=== PATIENT | female | born 1990 | race African-American/Black ===

== ENCOUNTER 2021-03-26 13:15 | Outpatient (REF) | payer OTHER, SELFPAY ==
[2021-03-27 03:55] LABS: CT PCR NOT DETECTED (Not Detect.); NG PCR NOT DETECTED (Not Detect.)
== END 2021-03-26 13:16 | disposition home or self-care (01) ==
LOC: HO.LAB 13:15
PROVIDERS: Visit Provider Advanced Practice Midwife
DX: Z30.011 Encounter for initial prescription of contraceptive pills (principal); N91.2 Amenorrhea, unspecified
CPT/HCPCS: 81025; 87491; 87591

== ENCOUNTER 2023-10-15 10:02 | Outpatient (AMB) | payer OTHER, SELFPAY ==
[2023-10-15 11:08] VITALS: BP 100/70; PULSE 83; O2SAT 96; BMI 41.8
--- NOTE | 2023-10-15 11:08 | A.OFFPC_ITS ---
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[facility]) Intake Note: Pt is here today as a New Patient for a PE Is last menstrual period known: Yes Last menstrual period: 10/09/23 Allergies No Known Allergies Allergy (Unverified 10/15/23 11:24) Medication List - Last Reconciled 10/15/23 by RACHEL Em risperidone 2 mg PO BEDTIME sertraline 50 mg PO DAILY Tobacco use date assessed: 10/15/23 Dental Screening Dental Screen Date: 10/15/23 Did you have a dental visit in the last 12 months?: Yes Did you have a dental problem in the last 6 months where you did not have access to dental care?: No Was dental information given to patient?: Patient has dentist HPI HPI Comments History of Present Illness Details Patient is a 32-year-old female in today for physical exam. Patient is due for Pap smear, will refer to OBGYN. The patient is up-to-date with Tdap, last immunization was in 2019. Patient has not seen a provider in several years. Will draw fasting labs. Has a past medical history significant for: Anxiety depression-currently seeing Psychiatry. Control with medications. Patient is moving to [place] an early November. She reports that when she visits she gets nausea for the 1st week, usually due to acclimating to traveling and the change in cuisine. [facility] Medical History (Updated 10/15/23 @ 11:48 by RACHEL Em) Nausea History of chlamydia History of MRSA infection Depression Asthma Social History Housing: House Alcohol intake: former Patient Tobacco Use Status: Current everyday Tobacco user Tobacco use type: Cigarette Cigarettes Per Day: 7 Years Smoked: 9 Packs per year/per ci.15 e-Cigarette/Vaping Use: Never Used service: No Current occupational status: unemployed Gender identity: Female Cognitive needs: No Hearing needs: No Vision needs: No Female Reproductive History Menstrual Age of Menarche: 11 Date of last menstrual period: 10/09/23 Questionnaire PHQ-9 Over the last 2 weeks, how often have you been bothered by any of the following problems? 1. Little interest or pleasure in doing things: not at all 2. Feeling down, depressed, or hopeless: not at all 3. Trouble falling or staying asleep, or sleeping too much: not at all 4. Feeling tired or having little energy: not at all 5. Poor appetite or overeating: not at all 6. Feeling bad about yourself - or that you are a failure or have let yourself or your family down: not at all 7. Trouble concentrating on things, such as reading the newspaper or watching television: not at all 8. Moving or speaking so slowly that other people could have noticed. Or the opposite - being so fidgety or restless that you have been moving around a lot more than usual: not at all 9. Thoughts that you would be better off or of hurting yourself in some way: not at all Total score: 0 Depression Screening Interpretation: Negative Depression Screening Done: Yes 93794 - PHQ-9 Billing: Yes Source: Developed by Drs. Alex Lin, Maida Tanner, Augie Ozuna and colleagues, with an educational elma from [employer]. Thrive Questionnaire Date Thrive assessed: 10/15/23 I am a: Patient What is your living situation today?: I have a steady place to live Within the past 12 months, did the food you bought not last and you didn't have the money to get more?: Never true Within the past 12 months, did you worry whether your food would run out before you got money to buy more?: Never true Do you have trouble paying for medicines?: No Do you have trouble getting transportation to medical appointments?: No Do you have trouble paying your heating and electricity bill?: No Do you have trouble taking care of your child, family member or friend?: No Are you currently unemployed and looking for a job?: No Are you interested in more education?: No THRIVE Score: 0 AUDIT C Alcohol Use Questionnaire (AUDIT-C) 1. How often do you have a drink containing alcohol?: Never Total Score: 0 SANTANA-7 AMB Questionnaire SANTANA-7 Date SANTANA - 7 assessed: 10/15/23 Feeling nervous, anxious, or on edge: 0 = Not at all Not being able to stop or control worryin = Not at all Worrying too much about different things: 0 = Not at all Trouble relaxin = Not at all Being so restless that it is hard to sit still: 0 = Not at all Becoming easily annoyed or irritable: 0 = Not at all Feeling afraid as if something awful might happen: 0 = Not at all Total SANTANA-7 score (0-4 normal; 5-9 mild; 10-14 moderate; 15-21 severe): 0 Source: Developed by Drs. Alex Lin, Maida Tanner, Augie Ozuna and colleagues, with an educational elma from [employer]. SANTANA-7 Assessment Billing SANTANA-7 Assessment Tool: SANTANA-7 Assessment 63578 Review of Systems Const All systems reviewed & are unremarkable except as noted in HPI and below Physical exam (Primary Care) Vital Signs: Last Vital Signs Pulse 83 10/15/23 11:08 BP 100/70 10/15/23 11:08 Pulse Ox 96 10/15/23 11:08 Oxygen Delivery Method Room Air 10/15/23 11:08 Care Plan Goal for BP management: Blood pressure controlled. BMI result Body Mass Index 41.8 Tobacco/Smoking Status: Tobacco use Status Tobacco use date assessed 10/15/23 10/15/23 11:12 Patient Tobacco Use Status Current everyday Tobacco 10/15/23 11:18 Tobacco use type Cigarette 10/15/23 11:12 e-Cigarette/Vaping Use Never Used 10/15/23 11:18 Are you ready to quit: No PHQ-9: PHQ-9 Score PHQ-9: Total score 0 10/15/23 11:12 Depression Screening Interpretation: Negative Thrive Assessment: Date of Thrive Assessment Date Thrive assessed 10/15/23 10/15/23 11:12 Const Other: Appearance: Alert.? Oriented X3.? No acute distress.? Head: Normocephalic, atraumatic. Eyes: Sclera white. PERRLA ENT: Pharynx normal.?TM intact and pearly dixon. Neck: Normal inspection.? Neck supple.?Full ROM. No carotid upstroke. CVS: Normal heart rate and rhythm.? Pulses normal.? Respiratory: No respiratory distress.? Breath sounds normal.? Abdomen: Soft and nontender.? Skin: Skin warm and dry.? Normal skin color.? Normal skin turgor.? Extremities: No lower extremity edema. 5/5 strength to bilateral upper and lower extremities Back: No midline tenderness, no C-spine tenderness, full range of motion, no CVA tenderness bilaterally Neuro: Oriented X 3.? No motor deficit.? No sensory deficit. CN 2-12 intact Assessment and Plan Assessment & Plan (1) Encounter for physical examination: Comment: Will draw fasting labs. Code(s): Z00.00 - Encounter for general adult medical examination without abnormal findings (2) Depression: Comment: Establish care with psychiatry. Patient depression controlled with medications risperidone 2 mg p.o. daily and sertraline 50 mg p.o. daily. Code(s): F32.A - Depression, unspecified Qualifiers: Depression Type: unspecified Qualified Code(s): F32.A - Depression, unspecified Plan: Take your medications as prescribed. If you were prescribed antibiotics today, it is important that you take your medication to their entirety, do not skip any doses, do not finish them early. Plan Will follow up with labs. Orders: Orders Complete Blood Count Auto Diff Today Z13.0 - Encounter for screening for diseases of the blood and blood-forming organs and certain disorders involving the immune mechanism Comprehensive Met. Panel Today Z91.89 - Other specified personal risk factors, not elsewhere classified Lipid Panel Today Z13.220 - Encounter for screening for lipoid disorders Vitamin D 25-OH (D2 and D3) Today Z91.89 - Other specified personal risk factors, not elsewhere classified Vitamin B6 Today Z13.21 - Encounter for screening for nutritional disorder Vitamin B12 Today Z13.21 - Encounter for screening for nutritional disorder Ur Preg Test Today Z30.011 - Encounter for initial prescription of contraceptive pills UA CC w/rflx Micro + Cult Today Z13.89 - Encounter for screening for other disorder TSH reflex Free T4 Today Z13.29 - Encounter for screening for other suspected endocrine disorder Referrals [facility] Referral Z12.4 - Encounter for screening for malignant neoplasm of cervix Coding Level of Care Code New Pt Prev Care [id number] Diagnoses Encounter for physical examination Z00.00 Depression, unspecified depression type F32.A Depression Type: unspecified Additional Codes SANTANA-7 Assessment Billing - SANTANA-7 Assessment Tool: SANTANA-7 Assessment 34769 ([id number]) Time Spent (min) 35
== END 2023-10-15 14:30 | disposition home or self-care (01) ==
PROVIDERS: Visit Provider Nurse Practitioner Primary Care
DX: Z00.00 Encounter for general adult medical examination without abnormal findings (principal); F32.A Depression, unspecified
CPT/HCPCS: 99385